=== PATIENT | male | born 1940 | race Caucasian/White ===

== ENCOUNTER 2017-05-17 22:08 | Emergency (ER) | payer MEDICARE ==
[~2017-05-17] VITALS: Ht 172.7 cm; Wt 68.2 kg
[2017-05-17] MEDS ORDERED: ipratropium/albuterol 3ml nebule NEB ONE (22:25)
[2017-05-17 22:41] LABS: BASOPHILS % (AUTO) 0.1 % (0-1); EOSINOPHILS # (AUTO) 1.5 X10'3 (0-0.9); EOSINOPHILS % (AUTO) 18.6 % (0-6); HEMATOCRIT 44.8 % (42.0-52.0); HEMOGLOBIN 15.6 g/dl (14.0-17.9); LYMPHOCYTES # (AUTO) 0.8 X10'3 (1.1-4.8); LYMPHOCYTES % (AUTO) 9.3 % (21-51); MEAN CORPUSCULAR HEMOGLOBIN 31.6 PG (27.0-31.0); MEAN CORPUSCULAR HGB CONC 34.8 % (33.0-36.5); MEAN CORPUSCULAR VOLUME 90.9 FL (78-98); MEAN PLATELET VOLUME 7.7 FL (7.4-10.4); MONOCYTES # (AUTO) 0.6 X10'3 (0-0.9); MONOCYTES % (AUTO) 7.7 % (2-12); NEUTROPHILS # (AUTO) 5.3 X10'3 (1.8-7.7); NEUTROPHILS % (AUTO) 64.3 % (42-75); PLATELET COUNT 251 X10'3 (140-440); RED BLOOD COUNT 4.93 X10'6 (4.70-6.10); RED CELL DISTRIBUTION WIDTH 13.2 % (11.5-14.5); WHITE BLOOD COUNT 8.2 X10'3 (4.5-11.0)
[2017-05-17 23:00] LABS: PARTIAL THROMBOPLASTIN TIME 26 SECONDS (22-32); PROTHROMBIN TIME 10.2 SECONDS (9.0-12.0)
[2017-05-17] MEDS ORDERED: methylPREDNISolone sod succ 125mg/2ml vial IV ONE (23:20)
[2017-05-17] MEDS ORDERED: levoFLOXACIN 250mg tablet PO ONE (23:20)
[2017-05-17] MEDS ORDERED: albuterol 2.5 MG/3 ML nebule CONTNEB PRN (23:20)
[2017-05-17 23:27] LABS: ANION GAP 9 (8-16); CHLORIDE 102 MMOL/L (99-107); GLUCOSE 118 MG/DL (70-104); POTASSIUM 3.9 MMOL/L (3.5-5.1); SODIUM 139 MMOL/L (135-145); TOTAL CARBON DIOXIDE 27.7 MMOL/L (24-32)
[2017-05-17 23:28] LABS: ALANINE AMINOTRANSFERASE 25 U/L (12-78); ALBUMIN 4.1 G/DL (3.4-5.0); ALBUMIN/GLOBULIN RATIO 1.4 (1.1-1.5); ALKALINE PHOSPHATASE 73 IU/L (46-116); ASPARTATE AMINO TRANSFERASE 17 U/L (10-37); BILIRUBIN,TOTAL 0.6 MG/DL (0.1-1.0); BLOOD UREA NITROGEN 19 MG/DL (7-18); BUN/CREATININE RATIO 21.8 (5.4-32.0); CALCIUM 8.7 MG/DL (8.5-10.1); CREATININE 0.87 MG/DL (0.60-1.10); TOTAL PROTEIN 7.1 G/DL (6.4-8.2); eGFR 86 ML/MIN
[2017-05-17 23:35] LABS: D-DIMER 0.41 MG/L FEU (0-0.50)
[2017-05-17 23:53] VITALS: BP 100/69
[2017-05-18] MEDS ORDERED: albuterol 2.5 MG/3 ML nebule NEB ONE (00:10)
[2017-05-18] MEDS ORDERED: PRED20TA PO (01:09)
[2017-05-18] MEDS ORDERED: ALBU8HFA PO (01:09)
[2017-05-18] MEDS ORDERED: ALB0.5UD IH (01:09)
[2017-05-18] MEDS ORDERED: LEVO500T2 PO (01:09)
== END 2017-05-18 01:16 | disposition home or self-care (01) ==
LOC: ER 22:08
DX: J44.9 Chronic obstructive pulmonary disease, unspecified (principal); I10 Essential (primary) hypertension; K21.9 Gastro-esophageal reflux disease without esophagitis; Z88.0 Allergy status to penicillin
CPT/HCPCS: 36415; 71045; 80053; 83880; 85025; 85379; 85610; 85730; 93005; 94640; 94760; 96374; 99285; J2930; 84484

== ENCOUNTER 2017-06-19 12:29 | Outpatient (CLI) | payer MEDICARE ==
[~2017-06-19] VITALS: Ht 172.7 cm; Wt 64.9 kg
[2017-06-19 13:05] LABS: TOTAL HEMOGLOBIN 14.9 G/dl (14.0-18.0)
[2017-06-19] MEDS ORDERED: albuterol 2.5 MG/3 ML nebule NEB ONE (13:40)
== END 2017-06-19 23:59 | disposition home or self-care (01) ==
LOC: RT 12:29
PROVIDERS: ATTEND Internal Medicine Pulmonary Disease
DX: J45.991 Cough variant asthma (principal)
CPT/HCPCS: 85018; 94060; 94640; 94727; 94729; 94760

== ENCOUNTER 2021-10-19 10:40 | Emergency (ER) | payer MEDICARE ==
[~2021-10-19] VITALS: Ht 172.7 cm; Wt 74.1 kg
[~2021-10-19 10:40] MED LIST: SUCR1ORA2 PO
--- NOTE | 2021-10-19 11:25 | NUR ---
Patient tested positive for covid at home this morning 10/19/21
[2021-10-19] MEDS ORDERED: BEBTELOVIMAB 175 MG/2 ML VIAL IV ONE (13:45)
[2021-10-19 15:06] VITALS: BP 164/81
== END 2021-10-19 15:10 | disposition home or self-care (01) ==
LOC: ER 10:40
DX: U07.1 COVID-19 (principal); K21.9 Gastro-esophageal reflux disease without esophagitis; I10 Essential (primary) hypertension; Z88.0 Allergy status to penicillin; Z79.899 Other long term (current) drug therapy
CPT/HCPCS: 87635; 99283; C9803; M0222; Q0222

== ENCOUNTER 2022-03-06 10:12 | Emergency (ER) | payer MEDICARE ==
[~2022-03-06] VITALS: Ht 172.7 cm; Wt 73.6 kg
[2022-03-06 10:30] LABS: BASOPHILS % (AUTO) 0.4 % (0-1); EOSINOPHILS # (AUTO) 0.2 X10'3 (0-0.9); EOSINOPHILS % (AUTO) 3.6 % (0-6); HEMOGLOBIN 15.7 g/dl (14.0-17.9); LYMPHOCYTES # (AUTO) 0.9 X10'3 (1.1-4.8); LYMPHOCYTES % (AUTO) 16.3 % (21-51); MEAN CORPUSCULAR HEMOGLOBIN 31.5 PG (27.0-31.0); MEAN CORPUSCULAR HGB CONC 33.4 g/dL (33.0-36.5); MEAN CORPUSCULAR VOLUME 94.3 FL (78-98); MEAN PLATELET VOLUME 7.4 FL (7.4-10.4); MONOCYTES # (AUTO) 0.4 X10'3 (0-0.9); MONOCYTES % (AUTO) 7.3 % (2-12); NEUTROPHILS # (AUTO) 4.2 X10'3 (1.8-7.7); NEUTROPHILS % (AUTO) 72.4 % (42-75); PLATELET COUNT 259 X10'3 (140-440); RED BLOOD COUNT 4.98 X10'6 (4.70-6.10); RED CELL DISTRIBUTION WIDTH 12.6 % (11.5-14.5); WHITE BLOOD COUNT 5.8 X10'3 (4.5-11.0)
[2022-03-06 10:56] LABS: ALANINE AMINOTRANSFERASE 25 U/L (12-78); ALBUMIN/GLOBULIN RATIO 1.3 (1.1-1.5); ALKALINE PHOSPHATASE 75 IU/L (46-116); ANION GAP 9 (8-16); ASPARTATE AMINO TRANSFERASE 20 U/L (10-37); BILIRUBIN,TOTAL 0.7 MG/DL (0.1-1.0); BLOOD UREA NITROGEN 18 MG/DL (7-18); BUN/CREATININE RATIO 15.7 (5.4-32.0); CALCIUM 9.3 MG/DL (8.5-10.1); CHLORIDE 103 MMOL/L (99-107); CREATININE 1.15 MG/DL (0.60-1.10); GLUCOSE 150 MG/DL (70-104); MAGNESIUM 2.1 MG/DL (1.5-2.4); SODIUM 138 MMOL/L (135-145); TOTAL CARBON DIOXIDE 25.8 MMOL/L (24-32); eGFR 61 ML/MIN
[2022-03-06 16:56] VITALS: BP 145/69
== END 2022-03-06 16:57 | disposition home or self-care (01) ==
LOC: ER 10:12
DX: F41.9 Anxiety disorder, unspecified (principal); R07.89 Other chest pain; I10 Essential (primary) hypertension; K21.9 Gastro-esophageal reflux disease without esophagitis; Z88.0 Allergy status to penicillin
CPT/HCPCS: 36415; 80053; 83735; 83880; 84484; 85025; 93005; 99284

== ENCOUNTER 2022-03-10 22:21 | Emergency (ER) | payer MEDICARE ==
[~2022-03-10] VITALS: Ht 172.7 cm; Wt 74.8 kg
[2022-03-10 23:03] LABS: BASOPHILS % (AUTO) 0.4 % (0-1); EOSINOPHILS # (AUTO) 0.3 X10'3 (0-0.9); EOSINOPHILS % (AUTO) 3.6 % (0-6); HEMATOCRIT 44.7 % (42.0-52.0); HEMOGLOBIN 15.2 g/dl (14.0-17.9); LYMPHOCYTES # (AUTO) 1.9 X10'3 (1.1-4.8); LYMPHOCYTES % (AUTO) 25.7 % (21-51); MEAN CORPUSCULAR HEMOGLOBIN 31.9 PG (27.0-31.0); MEAN CORPUSCULAR HGB CONC 34.1 g/dL (33.0-36.5); MEAN CORPUSCULAR VOLUME 93.5 FL (78-98); MEAN PLATELET VOLUME 7.7 FL (7.4-10.4); MONOCYTES # (AUTO) 0.6 X10'3 (0-0.9); NEUTROPHILS # (AUTO) 4.7 X10'3 (1.8-7.7); NEUTROPHILS % (AUTO) 62.3 % (42-75); PLATELET COUNT 264 X10'3 (140-440); RED BLOOD COUNT 4.78 X10'6 (4.70-6.10); RED CELL DISTRIBUTION WIDTH 12.4 % (11.5-14.5); WHITE BLOOD COUNT 7.5 X10'3 (4.5-11.0)
[2022-03-10 23:27] LABS: ALANINE AMINOTRANSFERASE 29 U/L (12-78); ALBUMIN 3.9 G/DL (3.4-5.0); ALBUMIN/GLOBULIN RATIO 1.3 (1.1-1.5); ALKALINE PHOSPHATASE 72 IU/L (46-116); ANION GAP 11 (8-16); ASPARTATE AMINO TRANSFERASE 23 U/L (10-37); BILIRUBIN,TOTAL 0.5 MG/DL (0.1-1.0); BLOOD UREA NITROGEN 17 MG/DL (7-18); BUN/CREATININE RATIO 18.9 (5.4-32.0); CALCIUM 9.1 MG/DL (8.5-10.1); CHLORIDE 103 MMOL/L (99-107); GLUCOSE 116 MG/DL (70-104); POTASSIUM 3.5 MMOL/L (3.5-5.1); SODIUM 141 MMOL/L (135-145); TOTAL PROTEIN 6.8 G/DL (6.4-8.2); eGFR 81 ML/MIN
[2022-03-11 00:53] VITALS: BP 147/72
== END 2022-03-11 01:14 | disposition home or self-care (01) ==
LOC: ER 22:22
DX: I10 Essential (primary) hypertension (principal); F41.9 Anxiety disorder, unspecified; J45.909 Unspecified asthma, uncomplicated; K21.9 Gastro-esophageal reflux disease without esophagitis; Z88.0 Allergy status to penicillin; Z79.899 Other long term (current) drug therapy
CPT/HCPCS: 36415; 80053; 83735; 83880; 84484; 85025; 93005; 99284

== ENCOUNTER 2022-06-20 19:39 | Emergency (ER) | payer MEDICARE ==
[~2022-06-20] VITALS: Ht 172.7 cm; Wt 73.6 kg
[2022-06-20 19:46] VITALS: BP 176/92
[2022-06-20 19:53] LABS: BASOPHILS % (AUTO) 0.5 % (0-1); EOSINOPHILS # (AUTO) 0.1 X10'3 (0-0.9); EOSINOPHILS % (AUTO) 1.9 % (0-6); HEMATOCRIT 45.9 % (42.0-52.0); HEMOGLOBIN 15.6 g/dl (14.0-17.9); LYMPHOCYTES # (AUTO) 2.2 X10'3 (1.1-4.8); LYMPHOCYTES % (AUTO) 30.5 % (21-51); MEAN CORPUSCULAR HEMOGLOBIN 31.6 PG (27.0-31.0); MEAN CORPUSCULAR VOLUME 92.9 FL (78-98); MONOCYTES # (AUTO) 0.5 X10'3 (0-0.9); MONOCYTES % (AUTO) 6.7 % (2-12); NEUTROPHILS # (AUTO) 4.4 X10'3 (1.8-7.7); NEUTROPHILS % (AUTO) 60.4 % (42-75); PLATELET COUNT 293 X10'3 (140-440); RED BLOOD COUNT 4.94 X10'6 (4.70-6.10); RED CELL DISTRIBUTION WIDTH 12.8 % (11.5-14.5); WHITE BLOOD COUNT 7.3 X10'3 (4.5-11.0)
[2022-06-20 20:07] LABS: ALANINE AMINOTRANSFERASE 24 U/L (12-78); ALBUMIN 4.1 G/DL (3.4-5.0); ALBUMIN/GLOBULIN RATIO 1.4 (1.1-1.5); ALKALINE PHOSPHATASE 65 IU/L (46-116); ANION GAP 6 (8-16); ASPARTATE AMINO TRANSFERASE 19 U/L (10-37); BILIRUBIN,TOTAL 0.4 MG/DL (0.1-1.0); BLOOD UREA NITROGEN 18 MG/DL (7-18); CALCIUM 9.1 MG/DL (8.5-10.1); CHLORIDE 106 MMOL/L (99-107); GLUCOSE 127 MG/DL (70-104); POTASSIUM 3.9 MMOL/L (3.5-5.1); SODIUM 142 MMOL/L (135-145); TOTAL CARBON DIOXIDE 30.1 MMOL/L (24-32); TOTAL PROTEIN 7.1 G/DL (6.4-8.2); eGFR 72 ML/MIN
[2022-06-20 20:14] LABS: MAGNESIUM 2.3 MG/DL (1.5-2.4)
== END 2022-06-20 21:43 | disposition left against medical advice (07) ==
LOC: ER 19:39
DX: R07.9 Chest pain, unspecified (principal); Z53.21 Procedure and treatment not carried out due to patient leaving prior to being seen by health care provider
CPT/HCPCS: 36415; 80053; 83735; 83880; 84484; 85025; 93005; 99281

== ENCOUNTER 2022-11-18 09:59 | Emergency (ER) | payer MEDICARE ==
[~2022-11-18] VITALS: Ht 172.7 cm; Wt 161.0 kg
[2022-11-18 10:05] VITALS: TEMP 98.2
[2022-11-18 10:39] LABS: BASOPHILS % (AUTO) 0.3 % (0-1); EOSINOPHILS % (AUTO) 0.6 % (0-6); HEMATOCRIT 43.1 % (42.0-52.0); HEMOGLOBIN 14.8 g/dl (14.0-17.9); LYMPHOCYTES # (AUTO) 0.6 X10'3 (1.1-4.8); LYMPHOCYTES % (AUTO) 8.2 % (21-51); MEAN CORPUSCULAR HEMOGLOBIN 32.3 PG (27.0-31.0); MEAN CORPUSCULAR HGB CONC 34.3 g/dL (33.0-36.5); MEAN CORPUSCULAR VOLUME 94.2 FL (78-98); MEAN PLATELET VOLUME 7.3 FL (7.4-10.4); MONOCYTES # (AUTO) 0.7 X10'3 (0-0.9); MONOCYTES % (AUTO) 9.7 % (2-12); NEUTROPHILS # (AUTO) 5.5 X10'3 (1.8-7.7); NEUTROPHILS % (AUTO) 81.2 % (42-75); PLATELET COUNT 261 X10'3 (140-440); RED BLOOD COUNT 4.57 X10'6 (4.70-6.10); RED CELL DISTRIBUTION WIDTH 12.6 % (11.5-14.5); WHITE BLOOD COUNT 6.8 X10'3 (4.5-11.0)
[2022-11-18 10:50] LABS: ALANINE AMINOTRANSFERASE 27 U/L (12-78); ALBUMIN 3.9 G/DL (3.4-5.0); ALBUMIN/GLOBULIN RATIO 1.4 (1.1-1.5); ALKALINE PHOSPHATASE 48 IU/L (46-116); ANION GAP 7 (8-16); ASPARTATE AMINO TRANSFERASE 18 U/L (10-37); BILIRUBIN,TOTAL 0.7 MG/DL (0.1-1.0); BLOOD UREA NITROGEN 14 MG/DL (7-18); BUN/CREATININE RATIO 12.7 (10.0-20.0); CALCIUM 8.8 MG/DL (8.5-10.1); CHLORIDE 102 MMOL/L (99-107); GLUCOSE 107 MG/DL (70-104); POTASSIUM 3.4 MMOL/L (3.5-5.1); SODIUM 137 MMOL/L (135-145); TOTAL CARBON DIOXIDE 27.9 MMOL/L (24-32); TOTAL PROTEIN 6.7 G/DL (6.4-8.2); eCRCL 52 ML/MIN; eGFR 64 ML/MIN
[2022-11-18] MEDS ORDERED: NIRM1TAB PO (11:05)
[2022-11-18 12:09] VITALS: BP 140/66; PULSE 69; RESP 16; O2SAT 98
== END 2022-11-18 12:26 | disposition home or self-care (01) ==
LOC: ER 09:59
DX: U07.1 COVID-19 (principal); K21.9 Gastro-esophageal reflux disease without esophagitis; J44.9 Chronic obstructive pulmonary disease, unspecified; E03.9 Hypothyroidism, unspecified; Z88.0 Allergy status to penicillin
CPT/HCPCS: 36415; 71045; 80053; 84145; 85025; 87502; 87503; 87811; 99284

== ENCOUNTER 2024-02-29 20:30 | Emergency (ER) | payer MEDICARE ==
[~2024-02-29] VITALS: Ht 172.7 cm; Wt 75.1 kg
[~2024-02-29 20:30] MED LIST changes: +NIRM1TAB PO
[2024-02-29 22:12] VITALS: BP 142/66; PULSE 58; RESP 16; TEMP 99; O2SAT 99
== END 2024-02-29 22:27 | disposition home or self-care (01) ==
LOC: ER 20:30
DX: I10 Essential (primary) hypertension (principal); K21.9 Gastro-esophageal reflux disease without esophagitis; J45.909 Unspecified asthma, uncomplicated; E07.9 Disorder of thyroid, unspecified; Z79.899 Other long term (current) drug therapy; Z88.0 Allergy status to penicillin; Z86.73 Personal history of transient ischemic attack (TIA), and cerebral infarction without residual deficits
CPT/HCPCS: 93005; 99283

== ENCOUNTER 2024-11-26 21:28 | Emergency (ER) | payer MEDICARE ==
[~2024-11-26] VITALS: Ht 172.7 cm; Wt 74.0 kg
[2024-11-26 21:37] VITALS: TEMP 96.8
[2024-11-26 21:48] LABS: MEAN PLATELET VOLUME 7.4 FL (7.4-10.4); RED CELL DISTRIBUTION WIDTH 13.1 % (11.5-14.5)
--- NOTE | 2024-11-26 21:58 | RADIOLOGY REPORT ---
EXAM: DI CHEST,SINGLE VIEW CLINICAL HISTORY: CP TECHNIQUE: Single AP view of the chest WID: COMPARISON: DI CHEST,SINGLE VIEW on DOS: 11/18/22 FINDINGS: Lines and tubes: None Chest: The heart size and pulmonary vasculature is within normal limits. Calcified plaque projects over the aortic arch. No pleural effusion, pneumothorax, or consolidation. Note is made of an azygous fissure. The osseous structures are grossly intact. IMPRESSION: 1. No acute cardiopulmonary abnormality.
[2024-11-26 22:07] LABS: CREATININE 1.16 MG/DL (0.60-1.10); PRO BRAIN NATRIURETIC PEPTIDE 120 PG/ML (0-450); TOTAL CARBON DIOXIDE 27.3 MMOL/L (24-32); eCRCL 48 ML/MIN; eGFR 60 ML/MIN
--- NOTE | 2024-11-27 01:08 | Physician Documentation ---
History of Present Illness ~ Chief Complaint: Chest Pain Stated Complaint: CHEST PAIN Time Seen by MD: 23:55 Primary Medical Doctor: Dr. meek Source: patient Mode of Arrival: POV Exam Limitations: no limitations HPI Chief Complaint: Chest pain Caveat: None Independent Historians: None History of Present Illness: Patient is an 84-year-old man that developed chest pain under his right breast yesterday morning after sneezing. He has had intermittent pain throughout the day when leaning over. Patient has some residual mild pain is sharp and worse with certain movements and deep breath. Review of systems: All systems were reviewed and are negative except for what is indicated in the history of present illness. Past Medical History: Hypothyroidism, HTN, GERD Past Surgical History: Noncontributory Social History: , no tobacco use, no alcohol use, no drug use Medications: Reviewed as documented Nursing Notes Allergies: Reviewed as documented in Nursing Notes Tetanus within 5 Years?: No Allergies: Coded Allergies: Penicillins (Verified Allergy, Unknown, UNKNOWN, 11/26/24) Active Prescriptions See Medication Reconciliation Form. Medication Reconciliation Scheduled Nirmatrelvir/Ritonavir (Paxlovid Co-Pack (Eua)), 3 EACH PO BID Sucralfate (Carafate), 10 ML PO TID Past Medical History Past Medical History: CVA/TIA/Stroke, Hypertension, Asthma, GERD, Hernia, Thyroid (unspecified) Past Surgical History: noncontributory Alcohol Use: None Drug Use: none Lives with: Spouse Lives In: Home Occupation: retired Review of Systems All Other Systems at this time: Reviewed and Negative ROS Patient denies any other acute symptoms other than above. All other systems are negative Physical Exam Vital Signs: RN Vital Signs have been reviewed: Yes, Temperature: 96.8, Source: Temporal, Heart Rate: 60, Respiratory Rate: 16, BP: 151/69, Pulse Oximetry: 97, Weight: 74.000 Oxygen Flow Rate: 0 Pulse Oximetry Reflects: adequate oxygenation Physical Exam General Appearance: No distress HEENT: Normal OP, moist oral mucosa, PERRL, EOMI Neck: supple, normal ROM, trachea midline Pulmonary: No respiratory distress, CTA, BS equal Cardiac: RRR, no murmur, rub or gallop, GI: nondistended, soft, nontender, normal bowel sounds, no guarding, no rebound Chest: Some chest wall tenderness under the left breast. Pain is reproducible with palpation. Extremities: normal ROM, no swelling, non-tender Skin: intact, dry, warm, no rashes Neuro: AAOx3, speech is clear, no focal motor weakness Psych: normal affect, good eye contact, no apparent hallucination, normal speech Progress Results/Orders Results/Orders Orders - NIDIA BERUMEN MD Chest,Single View (11/26/24 21:37) Monitor (11/26/24 21:37) Saline Lock (11/26/24 21:37) Oxygen (11/26/24 21:37) Electrocardiogram (11/26/24 21:37) Hs Troponin I W Calculations (11/27/24 00:37) Completed Orders - NIDIA BERUMEN MD Chest,Single View (11/26/24 21:37) Cbc/Diff (11/26/24 21:37) BMP (11/26/24 21:37) PBNP (11/26/24 21:37) Hs Troponin I W Calculations (11/26/24 21:37) Hs Troponin I W Calculations (11/26/24 23:37) Vital Signs 11/26/24 11/26/24 11/26/24 21:37 23:19 23:26 Temp 96.8 Pulse 70 60 Resp 15 15 16 B/P (MAP) 142/87 151/69 (96) Pulse Ox 99 97 O2 Flow Rate 0 Laboratory Tests Test 11/26/24 21:37 11/26/24 23:38 11/27/24 00:35 White Blood Count 6.8 Red Blood Count 4.62 L Hemoglobin 14.6 Hematocrit 43.1 Mean Corpuscular Volume 93.2 Mean Corpuscular Hemoglobin 31.6 H Mean Corpuscular Hemoglobin Concent 33.9 Red Cell Distribution Width 13.1 Platelet Count 266 Mean Platelet Volume 7.4 Neutrophils (%) (Auto) 51.7 Lymphocytes (%) (Auto) 33.7 Monocytes (%) (Auto) 9.1 Eosinophils (%) (Auto) 4.5 Basophils (%) (Auto) 1.0 Neutrophils # (Auto) 3.5 Lymphocytes # (Auto) 2.3 Monocytes # (Auto) 0.6 Eosinophils # (Auto) 0.3 Basophils # (Auto) 0.1 CBC Comment Sodium Level 140 Potassium Level 4.1 Chloride Level 105 Carbon Dioxide Level 27.3 Anion Gap 8 Blood Urea Nitrogen 20 H Creatinine 1.16 H Estimated GFR/1.73 m2 60 BUN/Creatinine Ratio 17.2 Glucose Level 108 H Calcium Level 9.1 Troponin I High Sensitivity 7 9 Pro-B-Type Natriuretic Peptide 120 Albumin 4.1 Chemistry Comments Troponin I High Sens Percent Delta 28 Troponin I Hi Sens Absolute Change 2 Medical Decision Making Findings Differential diagnosis includes but is not limited to: Musculoskeletal pain, pneumothorax, acute coronary syndrome, pulmonary embolus EKG independent interpretation: Performed at 9:33 p.m.. Normal sinus rhythm, heart rate 76, normal axis, normal ST segments Chest x-ray, single view, indication: Chest pain Independent interpretation: Lungs are clear, no pneumothorax, normal mediastinum, normal cardiac silhouette, no acute cardiopulmonary process Laboratory data independent interpretation: CBC: Normal CMP: BUN 20, creatinine 1.16 Troponin: 7, 9, Pro BNP: 120 Emergency department course/medical decision-making: Patient's history and physical is consistent with musculoskeletal pain. Patient is instructed to take Advil and Tylenol for pain. No evidence for acute coronary syndrome. EKG and chest x-ray are unremarkable. Troponins are negative. Patient is stable for discharge. Test results and all of the above is discussed with the patient. 5 Departure Time of Disposition: 01:08 Disposition: 01 HOME / SELF CARE / HOMELESS Impression: Primary Impression: Chest wall pain Condition: Stable Discharge Instructions: Chest Wall Pain, Musculoskeletal Pain Additional Instructions: TAKE MOTRIN/ADVIL WITH FOOD FOR PAIN. YOU MAY ALSO TAKE TYLENOL. Education Educated: Patient, Family Educated regarding: diagnosis, treatment Signature Scribe Signature: NO SCRIBE Attestation: NO SCRIBE NIDIA BERUMEN MD Nov 27, 2024 01:08
[2024-11-27 01:21] VITALS: BP 148/66; PULSE 68; RESP 16; O2SAT 99
--- NOTE | 2024-11-27 06:18 | ELECTROCARDIOGRAPH REPORT ---
[facility] Test Date: 2024-11-26 Test Time: 21:33:02 Pat Name: JAVID OSPINA Department: ED Room: Gender: M [place] Reporter: : 1940 Requested By: NIDIA BERUMEN Order Number: [id number] Reading MD: Measurements Intervals [place] Rate: 76 P: 52 CT: 171 QRS: 97 QRSD: 84 T: 47 QT: 365 QTc: 411 Interpretive Statements Sinus rhythm Right axis deviation Borderline low voltage, extremity leads Please click the below link to view image of tracing.
== END 2024-11-27 01:23 | disposition home or self-care (01) ==
LOC: ER 21:29
DX: R07.89 Other chest pain (principal); R06.02 Shortness of breath; E03.9 Hypothyroidism, unspecified; I10 Essential (primary) hypertension; J45.909 Unspecified asthma, uncomplicated; Z86.73 Personal history of transient ischemic attack (TIA), and cerebral infarction without residual deficits; Z88.0 Allergy status to penicillin
CPT/HCPCS: 36415; 71045; 80048; 83880; 84484; 85025; 93005; 99285